=== PATIENT | male | born 1950 | race African-American/Black ===

== ENCOUNTER 2018-10-23 08:48 | Outpatient (CLI) | payer OTHER ==
[~2018-10-23] VITALS: Ht 167.6 cm; Wt 100.5 kg
--- NOTE | ~2018-10-23 | D ---
[facility] [place] [address] [address] [place] [address] DISCHARGE SUMMARY Name: ASHLEYPAULINE KATHERINE Room #: DEP BARBARA [facility]wa#: [id number] Admission: 10/23/18 ������������������ Attend Phys: Flakito Rosenbaum MD Discharge: 10/24/18 ������������������ Date of : 48 Report #: [id number] THIS REPORT FOR: //name// CC: Dylan Rosenbaum DATE OF SERVICE: 10/24/2018 FINAL DIAGNOSES: 1. Unstable angina, status post coronary intervention. 2. History of myocardial infarction. 3. Hypertension. 4. Diabetes mellitus. 5. Hypercholesterolemia. 6. Edema. 7. Elevated PSA. HOSPITAL COURSE: Please see the original H and P for full details. The patient presented with complaints of dyspnea and chest pain. A nuclear stress test revealed lateral wall ischemia. Please see the cardiac catheterization report for full details. There was a severe occlusion in the proximal left circumflex artery, undergoing placement of a bare metal stent. He will need aspirin and Plavix for 3 weeks, may require surgery for his prostate in the near future. The previously placed stent in the mid segment of the left circumflex artery was patent. There is a stent in a small first obtuse marginal artery with moderately severe restenosis. Medical therapy is recommended given the caliber of the OM vessel. The LAD had mild to moderate disease. 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 Angioplasty was attempted, but unsuccessful due to difficulty with cannulation with a guiding catheter. It was decided to continue with medical therapy at this time. He remained stable overnight and will be discharged home. He will continue with aspirin and Plavix. He will continue with atorvastatin 40 mg daily, Farxiga, glipizide, hydrochlorothiazide, Januvia, lisinopril, metoprolol and Aldactone. He is scheduled for followup in the office in a few weeks. ��������������������������������������������� ���������������������������������������� By: ��������������������������������������������� 0904 1039 Flakito Rosenbaum MD /nt
[~2018-10-23 08:48] MED LIST: ASPIRIN325 PO; ATORVASTATIN CA40 MG PO; FARXIGA5 MG PO; GLIPIZIDE XL10 MG PO; HYDROCHLOROTHIA25 M2 PO; JANUVIA100 MG PO; LISINOPRIL40 MG PO; METFORMIN HCL1000 MG PO; PLAVIX 75 MG TA75 M1 PO; SPIRONOLACTONE25 M1 PO; TOPROL XL100 MG PO
[2018-10-23 10:10] VITALS: BP 143/68
--- NOTE | 2018-10-23 18:47 | CATHLAB ---
[facility] [place] [address] INVASIVE PROCEDURE REPORT Name: PAULINE RAMIREZ Room #: 219-P [facility]#: [id number] ������������� Admission: 10/23/18 ������������� Attend Phys: Flakito Rosenbaum MD Discharge: ��� ������������� ��� Date of : 48 Date of Service: 10/23/18 1846 �� Report #: [id number] �������� ��������������������������������������������[id number] THIS REPORT FOR: //name// APPROVED REPORT Study performed: 10/23/2018 12:12:49 Patient Details The patient is a 68 year-old male Event Personnel Flakito Rosenbaum Improvement Advisor, Sheree Rivera RN, Dajuan Dc RN, Manuelito Weber Monitor, Sabine Mason RTR, MANAGER FRAUD Scrub Procedures Performed LHC/CORS/LV/ BMS MID CIRC Indication Dyspnea, Positive stress test, Chest pain, Pre-op clearance Risk Factors HypercholesterolemiaPhysical Activity, Coronary Artery DiseaseHypertension, Diabetes Previous Procedures/Diagnoses Previous PCI, Previous PA Procedure Narrative The Right Groin^ was infiltrated with 1% Lidocaine subcutaneous anesthesia. A PINNACLE 4FR Sheath #[id number] sheath was inserted into the RFA^. Coronary angiography was performed using coronary diagnostic catheters. The right coronary system was accessed and visualized with a AL1 catheter. The left coronary system was accessed and visualized with a JL4 catheter. The left ventricle was accessed and visualized with a PIGTAIL catheter. Left ventriculogram was performed in HUTCHINSON projection. Pre-demployment femoral angiogram was performed RFA. Closure device was deployed with a Fr MYNXGRIP 6/7F #[id number]. The patient tolerated the procedure well and there were no complications associated with the procedure. There was no hematoma. Intraoperative Conscious Sedation Sedation start time: 1224 Case end Time: 1440 [facility] [address] [place] [address] INVASIVE PROCEDURE REPORT Name: PAULINE RAMIREZ Room #: 219-P [facility].#: [id number] ������������� Admission: 10/23/18 ������������� Attend Phys: Flakito Rosenbaum MD Discharge: ��� ������������� ��� Date of : 48 Date of Service: 10/23/18 1846 �� Report #: [id number] �������� ��������������������������������������������[id number] Fentanyl 100.0 mcg Versed 2 mg Fluoro Time: 43.70 minutes Dose: DAP 77520.00 cGycm2 Contrast Type and Amount: Omnipaque 360 ml Coronary Angiography The patient's coronary anatomy is co- dominant. Diagnostic Cath Left Main This is a large caliber vessel, patent With no flow-limiting lesions. LAD This is a moderate size caliber vessel, traversing the anterior wall and wrapping around the apex. There is mild disease in the midsegment, 20%. The distal segment has mild to moderate diffuse disease, 30-40%. Diagonal 1 This is a patent vessel, with no flow-limiting lesions. Circumflex This is a codominant vessel with a severe stenosis in the proximal segment, 80%. There is a stent in the mid segment of the left circumflex artery, patent with minimal restenosis. OM1 This is a small caliber vessel with a stent in the proximal segment, with moderately severe restenosis. Recommend medical therapy. OM2 This is a moderate size caliber vessel, patent with mild disease in the proximal segment. OM3 This is a patent vessel, with no flow-limiting lesions. 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 There is a severe occlusion within the mid/distal segment, 70-80%. R PDA This is a patent vessel, with no flow-limiting lesions. Left Ventriculography The left ventricle is normal in size with normal contractility. The left ventricular ejection fraction is estimated to be 55-60%. Hemodynamics The aortic pressure is 148/75 mmHg with a mean of 105 mmHg. The left ventricular pressure is 137/12 mmHg with a mean of mmHg. The left ventricular end diastolic pressure is 24 mmHg. PCI Technique Lesion Anticoagulation was achieved with Angiomax. Patient was preloaded with Plavix. Percutaneous coronary intervention was performed on the proximal circumflex artery segment. The lesion stenosis prior to [facility] [address] [place] [address] INVASIVE PROCEDURE REPORT Name: ASHLEYPAULINE KATHERINE Room #: 219-P REG [facility]..#: [id number] ������������� Admission: 10/23/18 ������������� Attend Phys: Flakito Rosenbaum MD Discharge: ��� ������������� ��� Date of : 48 Date of Service: 10/23/18 1846 �� Report #: [id number] �������� ��������������������������������������������[id number] intervention was 80% with KARLA 3 flow. A VISTA 6FR XB 4.5 #[id number] Guide Catheter was used to engage the ostium. A Luge Wire .014 x 182CM #[id number] Interventional Guidewire was used to cross the lesion. BALLOON DILATION A Balloon catheter Euphora RX 3.0 x 6 #[id number] was inserted and inflated up to 10.00atm for 15seconds. Additional Inflation: 14.00atm for 30seconds. STENT DEPLOYMENT A stent INTEGRITY OTW 4.0 X 12 #[id number] was inserted and inflated up to 18.00atm for 22seconds. A bare metal stent was deployed, as he may require urgent surgery in the near future. Final angiography reveals 0 % stenosis with KARLA 3 flow. PCI Technique Lesion 2 Percutaneous coronary intervention was performed on the mid-RCA. Comments An attempt of coronary angioplasty of the anomalous RCA was performed unsuccessfully. Multiple 6 [place] guide catheters were used to cannulate the anomalous RCA, but unsuccessful. Finally, a JL4 guide catheter was able to be placed near the ostium, able to track a wire half-way down the RCA but had no support from the guide catheter. The patient remained hemodynamically stable and it was decided to not go any further. Recommend medical therapy at this time. If another procedures indicated, consider attempting through the right radial artery as it will provide a different angle of approach to the origin of the anomalous RCA. Conclusion 1. Successful insertion of a bare metal stent into the proximal left circumflex artery, codominant vessel. 2. Patent stent in the mid segment of the left circumflex artery. 3. Moderately severe restenosis in a small OM1 vessel, recommend medical therapy. 4. 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 Recommend medical therapy. 5. Normal LV systolic function. [facility] [address] [place] [address] INVASIVE PROCEDURE REPORT Name: PAULINE RAMIREZ Room #: 219-P REG [facility]#: [id number] ������������� Admission: 10/23/18 ������������� Attend Phys: Flakito Rosenbaum MD Discharge: ��� ������������� ��� Date of : 48 Date of Service: 10/23/181845 �� Report #: [id number] �������� ��������������������������������������������[id number] 6. Recommend dual antiplatelet therapy for 3 weeks and aggressive risk factor management. ��������������������������������������������� <ELECTRONICALLY SIGNED> ���������������������������������������� By: Flakito Rosenbaum MD ��������������������������������������������� 10/23/181845 45 45 Flakito Rosenbaum MD /INF
[2018-10-23 19:55] VITALS: BP 123/71
[2018-10-24 03:51] LABS: CALCIUM 8.2 mg/dL (8.5-10.1); CREATININE 1.4 mg/dL (0.7-1.3); POTASSIUM 4.7 mmol/L (3.5-5.1); TOTAL BILIRUBIN 0.2 mg/dL (<0.1-1.0); TOTAL PROTEIN 6.7 g/dL (6.4-8.2)
[2018-10-24 04:35] VITALS: BP 121/62
[2018-10-24 05:04] LABS: HEMATOCRIT 31.5 % (42.0-52.0); MCH 25.5 pg (26.0-34.0); MCHC 31.6 g/dL (28.0-37.0); MCV 80.5 fL (80.0-100.0); RBC 3.91 mil/uL (4.50-6.00); RDW 17.8 % (10.5-14.5); WBC 5.8 thou/uL (4.0-11.0)
[2018-10-24 08:00] VITALS: BP 130/65
--- NOTE | 2018-10-24 08:10 | EKG ---
[place] [address] [address] [facility] [place] [address] ELECTROCARDIOGRAM REPORT Name: PAULINE RAMIREZ Room #: 219-P [facility]#: [id number] ������������������ Admission: 10/23/18 ������������������ Attend Phys: Flakito Rosenbaum MD Discharge: ������������������ Date of : 48 Report #: [id number] ����������������������������������������������������������������� [id number] THIS REPORT FOR: //name// 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: Marjorie BLACKWELL : 1950 Requested By: Flakito Rosenbaum Order Number: [id number] MD: Chad Medrano Measurements Intervals [place] Rate: 72 P: 8 NM: 236 QRS: 76 QRSD: 158 T: 29 QT: 438 QTc: 480 Interpretive Statements Sinus rhythm Prolonged NM interval Right bundle branch block No previous ECG available for comparison Electronically Signed On 10-24-2018 8:09:51 CDT by Chad Medrano [email or web address] ��������������������������������������������� <ELECTRONICALLY SIGNED> ���������������������������������������� By: Chad Medrano MD, [facility] ��������������������������������������������� 10/24/18 0809 1010 1010 Chad Medrano MD, FACC /EPI
[2018-10-24 09:11] VITALS: BP 121/62
--- NOTE | 2018-10-24 09:24 | EKG ---
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: MADHURI : 1950 Requested By: Flakito Rosenbaum Order Number: [id number] MD: Chad Medrano Measurements Intervals [place] Rate: 69 P: 19 AL: 250 QRS: 55 QRSD: 157 T: 34 QT: 449 QTc: 481 Interpretive Statements Sinus rhythm Prolonged AL interval Right bundle branch block No previous ECG available for comparison Electronically Signed On 10-24-2018 9:24:15 CDT by Chad Medrano [email or web address] ��������������������������������������������� <ELECTRONICALLY SIGNED> ���������������������������������������� By: Chad Medrano MD, [facility] ��������������������������������������������� 10/24/18 0924 0741 0741 Chad Medrano MD, FACC /EPI
== END 2018-10-24 09:50 | disposition home or self-care (01) ==
LOC: 2N 08:48 → CATH 08:48 → 2N 16:09 → ENTRNSPT 10-24 09:29 → EDTRNSPTSTS 10-24 09:34 → CATH 10-24 09:50
PROVIDERS: Internal Medicine Cardiovascular Disease
DX: I25.10 Atherosclerotic heart disease of native coronary artery without angina pectoris (principal); I12.9 Hypertensive chronic kidney disease with stage 1 through stage 4 chronic kidney disease, or unspecified chronic kidney disease; E11.22 Type 2 diabetes mellitus with diabetic chronic kidney disease; N18.9 Chronic kidney disease, unspecified; E78.00 Pure hypercholesterolemia, unspecified; J44.9 Chronic obstructive pulmonary disease, unspecified; I25.2 Old myocardial infarction; M10.9 Gout, unspecified; F17.210 Nicotine dependence, cigarettes, uncomplicated; Z85.46 Personal history of malignant neoplasm of prostate; Z95.5 Presence of coronary angioplasty implant and graft; Z82.49 Family history of ischemic heart disease and other diseases of the circulatory system; Z98.890 Other specified postprocedural states; Z79.899 Other long term (current) drug therapy
CPT/HCPCS: 10081

== ENCOUNTER → 2019-07-31 | Outpatient (CLI) | payer OTHER | LOC: MRI 11:06 | DX: G31.89 Other specified degenerative diseases of nervous system (principal); M47.812 Spondylosis without myelopathy or radiculopathy, cervical region; Z85.46 Personal history of malignant neoplasm of prostate ==

== ENCOUNTER → 2019-08-23 | Outpatient (CLI) | payer OTHER | LOC: ULTRA 12:17 | DX: K11.8 Other diseases of salivary glands (principal) ==

== ENCOUNTER → 2020-05-23 | Outpatient (CLI) | payer OTHER | LOC: SJCVCIMAG 08:48 | PROVIDERS: ATTEND Internal Medicine Cardiovascular Disease | DX: R94.31 Abnormal electrocardiogram [ECG] [EKG] (principal); R00.0 Tachycardia, unspecified; I44.0 Atrioventricular block, first degree; I45.4 Nonspecific intraventricular block; I11.9 Hypertensive heart disease without heart failure; I25.10 Atherosclerotic heart disease of native coronary artery without angina pectoris; E78.00 Pure hypercholesterolemia, unspecified; Z79.82 Long term (current) use of aspirin; Z79.899 Other long term (current) drug therapy; Z87.891 Personal history of nicotine dependence ==

== ENCOUNTER → 2020-09-10 | Outpatient (CLI) | payer OTHER | LOC: SJCVC 13:51 | PROVIDERS: ATTEND Internal Medicine Cardiovascular Disease | DX: R94.31 Abnormal electrocardiogram [ECG] [EKG] (principal); I45.4 Nonspecific intraventricular block; I25.10 Atherosclerotic heart disease of native coronary artery without angina pectoris; E78.00 Pure hypercholesterolemia, unspecified; R60.9 Edema, unspecified; I25.2 Old myocardial infarction; J44.9 Chronic obstructive pulmonary disease, unspecified; E11.22 Type 2 diabetes mellitus with diabetic chronic kidney disease; I12.9 Hypertensive chronic kidney disease with stage 1 through stage 4 chronic kidney disease, or unspecified chronic kidney disease; N18.9 Chronic kidney disease, unspecified; M10.9 Gout, unspecified; E78.5 Hyperlipidemia, unspecified; Z95.5 Presence of coronary angioplasty implant and graft; Z98.890 Other specified postprocedural states; Z79.82 Long term (current) use of aspirin; Z79.4 Long term (current) use of insulin; Z79.899 Other long term (current) drug therapy; Z87.891 Personal history of nicotine dependence; Z82.49 Family history of ischemic heart disease and other diseases of the circulatory system ==

== ENCOUNTER → 2020-09-29 | Outpatient (CLI) | payer OTHER ==
--- NOTE | 2020-10-02 17:07 | PATH ---
[facility] [place] [address] PATHOLOGY RPT PROCEDURE Name: KOBY RAMIREZ Room #: REG [facility]..#: [id number] Admission: 09/29/20 Date of : 48 Discharge: Report #: [id number] Path Case #: [id number] [facility] Accession Number: [id number] . 01 Material submitted: . PART A: stomach - RANDOM GASTRIC BIOPSY PART B: cecum - CECAL POLYPS X2 PART C: colon - ASCENDING COLON POLYP X4. Modifiers: ascending, X4 PART D: colon - TRANSVERSE COLON POLYP X12. Modifiers: transverse, X12 PART E: sigmoid colon - SIGMOID COLON POLYP . 01 Clinical history: . ANEMIA, HX OF POLYPS EGD, COLONOSCOPY . 02 Diagnosis: A. Gastric mucosa, random gastric, rule out H. pylori, endoscopic biopsy: - Mild reactive gastropathy. - Negative for intestinal metaplasia or atrophy. - Negative for Helicobacter pylori (properly controlled immunohistochemical stain performed). . B. Polyps x 2, cecal polyps, endoscopic biopsy: - Tubular adenoma identified in multiple fragments. - Negative for high-grade dysplasia. . C. Polyp x 4, ascending colon polyp, endoscopic biopsy: - Multiple fragments showing the tubular adenoma. - Negative for high-grade dysplasia. . D. Polyp x 12, transverse colon polyp, endoscopic biopsy: - Multiple fragments showing the tubular adenoma. - Negative for high-grade dysplasia. . E. Polyp, sigmoid colon polyp, endoscopic biopsy: - Tubular adenoma. - Negative for high-grade dysplasia. (IUV:pit 10/02/2020) QTP 10/02/2020 1406 Local . 02 Electronically signed: . Yocasta Koroma MD, Pathologist NPI- [id number] . 01 Gross description: . A. The specimen is received in formalin, labeled "Koby Ramirez, random gastric biopsy rule out H. pylori" and consist of multiple fragments of [facility] [address] [place] [address] PATHOLOGY RPT PROCEDURE Name: OKBY RAMIREZ KATHERINE Room #: REG [facility].#: [id number] Admission: 09/29/20 Date of : 48 Discharge: Report #: [id number] Path Case #: [id number] soft alegre tissue measuring up to 0.9 cm. Entirely submitted in A1. . B. The specimen is received in formalin, labeled "Koby Ramirez, cecal polyps x2" and consist of multiple fragments of soft alegre tissue measuring up to 0.4 cm. Entirely submitted in B1. . C. The specimen is received in formalin, labeled "Koby Ramirez, ascending colon polyp x4" and consist of multiple fragments soft alegre tissue measuring up to 0.6 cm. Entirely submitted in C1. . D. The specimen is received in formalin, labeled "Koby Ramirez, transverse colon polyp x12" and consist of multiple fragments soft alegre tissue measuring up to 0.6 cm. Entirely submitted in D1-D2. . E. The specimen is received in formalin, labeled "Koby Ramirez, sigmoid colon polyp" and consist of 1 fragment soft alegre tissue measuring up to 0.7 cm. Entirely submitted in E1.([facility]; 10/01/2020) ZOE/ZOE 10/02/2020 1403 Local . 02 Pathologist provided ICD-10: K31.9, D12.0, D12.2, D12.3, D12.5 . 02 CPT . 817368, 836659, 504437, 108709, 388537, X86252 Specimen Comment: A courtesy copy of this report has been sent to [phone] Specimen Comment: [phone], Specimen Comment: Report sent to ,DR IVORY / DR JULES Performed at: [address], [place] [id number] MD Fred Diallo MD Phone: [phone] Performed at: [address] [id number] MD Yocasta Koroma MD Phone: [phone]
== END | disposition home or self-care (01) ==
LOC: LAB 07:43
PROVIDERS: Student in an Organized Health Care Education/Training Program; ATTEND Internal Medicine Gastroenterology
DX: D50.9 Iron deficiency anemia, unspecified (principal); K92.1 Melena; D12.0 Benign neoplasm of cecum; D12.2 Benign neoplasm of ascending colon; D12.3 Benign neoplasm of transverse colon; D12.5 Benign neoplasm of sigmoid colon; K64.8 Other hemorrhoids; K31.819 Angiodysplasia of stomach and duodenum without bleeding; K29.70 Gastritis, unspecified, without bleeding; K31.9 Disease of stomach and duodenum, unspecified; Z98.890 Other specified postprocedural states; Z79.899 Other long term (current) drug therapy; Z20.822 Contact with and (suspected) exposure to COVID-19
CPT/HCPCS: 62110; 62900

== ENCOUNTER → 2020-10-22 | Outpatient (CLI) | payer OTHER | LOC: SJCVCIMAG 07:52 | PROVIDERS: ATTEND Internal Medicine Cardiovascular Disease | DX: R94.31 Abnormal electrocardiogram [ECG] [EKG] (principal); I44.0 Atrioventricular block, first degree; I45.10 Unspecified right bundle-branch block; I48.21 Permanent atrial fibrillation; E78.00 Pure hypercholesterolemia, unspecified; D68.59 Other primary thrombophilia; I36.1 Nonrheumatic tricuspid (valve) insufficiency; I34.1 Nonrheumatic mitral (valve) prolapse; H53.9 Unspecified visual disturbance; I25.10 Atherosclerotic heart disease of native coronary artery without angina pectoris; M10.9 Gout, unspecified; E11.22 Type 2 diabetes mellitus with diabetic chronic kidney disease; I12.9 Hypertensive chronic kidney disease with stage 1 through stage 4 chronic kidney disease, or unspecified chronic kidney disease; N18.9 Chronic kidney disease, unspecified; E78.5 Hyperlipidemia, unspecified; J44.9 Chronic obstructive pulmonary disease, unspecified; I25.2 Old myocardial infarction; Z98.61 Coronary angioplasty status; Z79.899 Other long term (current) drug therapy; Z79.01 Long term (current) use of anticoagulants; Z87.891 Personal history of nicotine dependence; Z72.89 Other problems related to lifestyle; Z85.46 Personal history of malignant neoplasm of prostate; Z88.8 Allergy status to other drugs, medicaments and biological substances ==

== ENCOUNTER → 2021-04-06 | Outpatient (CLI) | payer OTHER | LOC: SJCVC 10:19 | PROVIDERS: ATTEND Internal Medicine Cardiovascular Disease | DX: I45.4 Nonspecific intraventricular block (principal); I44.0 Atrioventricular block, first degree; R94.31 Abnormal electrocardiogram [ECG] [EKG]; I25.10 Atherosclerotic heart disease of native coronary artery without angina pectoris; D64.9 Anemia, unspecified; E78.00 Pure hypercholesterolemia, unspecified; M10.9 Gout, unspecified; E78.5 Hyperlipidemia, unspecified; E11.9 Type 2 diabetes mellitus without complications; I10 Essential (primary) hypertension; Z72.0 Tobacco use; Z79.84 Long term (current) use of oral hypoglycemic drugs; Z79.899 Other long term (current) drug therapy; Z87.891 Personal history of nicotine dependence; Z95.818 Presence of other cardiac implants and grafts ==